=== PATIENT | female | born 1965 | race Caucasian/White ===

== ENCOUNTER 2016-09-12 05:39 | Observation (INO) | payer BC ==
[~2016-09-12] VITALS: Ht 165.1 cm; Wt 99.9 kg
--- NOTE | ~2016-09-12 | HP ---
ADMIT: 09/12/2016 RM/LOC: [facility] MR#: [id number] [address] [address] MAKENNA EASTMAN [address] [place] [address] Pre-OP History and Physical SEX: F AGE: 51 : 1965 DATE OF SERVICE: HISTORY OF PRESENT ILLNESS: Ms. Eastman is 51-year-old. She is admitted for right thyroid lobectomy. In November 2012, she underwent left thyroid lobectomy with intraoperative frozen section identifying follicular adenomatous nodules. 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 Treatment options thereafter were discussed. We elected to maintain a monitor watchful approach. Ultrasound was obtained on August 10, 2016, which showed development of 3 separate nodules in the right thyroid lobe because of these measuring 1.3, 1.4, and 1.5 cm. Right thyroid lobectomy is recommended in completion of a total thyroidectomy. She does take thyroid hormone using levothyroxine 100 mcg daily and she is on no other medicines. PAST MEDICAL HISTORY: Positive for left thyroid lobectomy and right thyroid lobe biopsy in November 2012, sections, tubal ligation, and endometrial ablation. REVIEW OF SYSTEMS: No lower respiratory, cardiovascular, GI, , hematologic, or neurologic disorders. SOCIAL HISTORY: She drinks alcohol occasionally. Does not use caffeine, but does smoke cigarettes 1/2 pack per day. FAMILY HISTORY: No known anesthetic complications, coagulopathies, or thyroid disease. PHYSICAL EXAMINATION: GENERAL: A 51-year-old alert. HEENT: Pupils equal. No proptosis, exophthalmos or lid retraction. Ear canals, ADMIT: 09/12/2016 RM/LOC: [facility] MR#: [id number] [address] [address] MAKENNA EASTMAN [address] [place] [address] Pre-OP History and Physical SEX: F AGE: 51 : 1965 TMs, and middle ears clear. Nose, mouth, and pharynx clear. NECK: Well-healed surgical scar from previous partial thyroidectomy. No palpable nodules in the thyroid bed nor in the neck. LUNGS: Clear. HEART: Rhythm regular. EXTREMITIES: Normal. IMPRESSION: 1. Recurrent nodules, right thyroid lobe. 2. 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 PLAN: Right thyroid lobectomy (completion total thyroidectomy). Jose Daniel MD/ krystal JOB #: [id number] CC: Jose Daniel, Attending Physician UNKNOWN, Family Physician
[~2016-09-12 05:39] MED LIST: BACITRACIN15 G1 TP; BENADRYL-DPS25 MG PO; MOTRIN IB200 MG PO; NORCO 5-325 TA1 EACH PO
[2016-09-15] MEDS ORDERED: LEVOTHYROXINE100 MCG PO (07:29)
--- NOTE | 2016-09-18 07:06 | OR ---
ADMIT: 09/12/2016 RM/LOC: [address] [facility] MR#: [id number] [address] [address] MAKENNA EASTMAN [address] [place] [address] Operative/Delivery Room Report SEX: F AGE: 51 : 1965 SURGERY DATE: 09/12/2016 SURGEON: Jose Daniel MD PREOPERATIVE DIAGNOSIS: Right thyroid nodules. POSTOPERATIVE DIAGNOSIS: Right thyroid nodules. OPERATION: Right thyroid lobectomy (completion total thyroidectomy). ANESTHESIA: General oral endotracheal. ESTIMATED BLOOD LOSS: 40 mL. COMPLICATIONS: None. DRAINS: Killian-Agudelo 7 mm. COMMENT: Makenna presents for right thyroid lobectomy. She has developed nodules in the right thyroid lobe. In November 2015, underwent left thyroid lobectomy with multiple thyroid nodules with incidental finding of a microcarcinoma, 3 mm papillary thyroid carcinoma. DESCRIPTION OF PROCEDURE: With the patient in supine position, general endotracheal anesthesia, neck was extended slightly. The anterior neck was prepped with ChloraPrep, allowed 3 minutes to dry. The patient was draped sterilely. An incision was made following natural skin crease at previous incision site through the skin, subcutaneous tissue, and platysmal layer. There was moderate degree of scarring from her previous surgery. The strap muscles were identified and in the midline through scar tissue. The anterior tracheal wall was encountered and the right thyroid lobe was then exposed. There was a moderate degree of scarring along the anterior and lateral aspect of the right thyroid lobe. The deep lobe however had good tissue planes. During the dissection, recurrent laryngeal nerve was identified, its identity and function confirmed intact by NIM-2 stimulation. The superior parathyroid gland was identified in its natural position and preserved. The right thyroid lobe had multiple nodules, the largest in the superior pole of over 1 cm, hard but confined to the thyroid gland. The gland was from the surrounding tissues with blunt dissection. The inferior and superior thyroid artery and veins were clamped, divided, and coagulated as was the middle thyroid vein, and the gland was pedicled at Triana's ligament, which was transected, from the trachea and the right lobe, was then ADMIT: 09/12/2016 RM/LOC: [address] [facility] MR#: [id number] [id number] [id number] [place], [place] [address] MAKENNA EASTMAN [address] [place] [address] Operative/Delivery Room Report SEX: F AGE: 51 : 1965 removed from the field. The wound was irrigated with saline and cleaned with suctioning. Hemostasis was assured by clamping and coagulation. Recurrent laryngeal nerve function again tested and confirmed intact following lobectomy. She tolerated this very well. The wound was closed in layers over a 7 mm Killian-Agudelo drain brought out the left side of strap muscles and incision. A 3-0 chromic catgut used to approximate the deep tissues and the platysma layer in a running horizontal mattress suture of 5-0 Prolene to the skin. The drain was sutured to the skin with silk and a thyroid dressing applied. She tolerated this very well. She emerged from general anesthesia in the operating room, was extubated in the operating room, and transferred to the recovery room in good condition. She experienced no stridor. No airway distress. Jose Daniel MD/ krystal JOB #: [id number] CC: Jose Daniel, Attending Physician Cinthya May, Family Physician
== END 2016-09-13 10:47 | disposition home or self-care (01) ==
LOC: WOR 05:39 → 6PED 09:12
PROVIDERS: ADMIT Otolaryngology
PROC: 0GTH0ZZ Resection of Right Thyroid Gland Lobe, Open Approach (ICD-10-PCS; principal; 2016-09-12)
DX: E04.1 Nontoxic single thyroid nodule (principal); F17.210 Nicotine dependence, cigarettes, uncomplicated; E66.9 Obesity, unspecified; Z98.890 Other specified postprocedural states; Z79.899 Other long term (current) drug therapy; Z98.51 Tubal ligation status